=== PATIENT | male | born 1980 | race Caucasian/White ===

== ENCOUNTER 2019-11-10 20:19 | Emergency (ER) | payer OTHER ==
[~2019-11-10] VITALS: Ht 172.7 cm; Wt 79.5 kg
[~2019-11-10 20:19] MED LIST: CIPROFLOXACN500 MG PO; DOXYCYCL HYC100 MG OR; EC-NAPROSYN500 MG PO; FLEXERIL PO; KEFLEX500 MG PO; NAPROXEN500 MG PO; NO HOME MEDS; OPANA ER40 M1 PO; PROPOXACET N OR; PYRIDIUM200 MG PO; ROCEPHIN 2250 MG/VIA IM; ULTRAM50 M1 PO; ZITHROMAX250 MG PO
[2019-11-10] MEDS ORDERED: SUBOXONE1 MI1 SL (20:47)
[2019-11-10 22:25] VITALS: BP 136/88
== END 2019-11-10 22:25 | disposition home or self-care (01) | DRG 552 ==
LOC: ED 20:19
DX: S16.1XXA Strain of muscle, fascia and tendon at neck level, initial encounter (principal); S61.411A Laceration without foreign body of right hand, initial encounter; F17.200 Nicotine dependence, unspecified, uncomplicated; V43.51XA Car driver injured in collision with sport utility vehicle in traffic accident, initial encounter